=== PATIENT | female | born 1970 | race Caucasian/White ===

== ENCOUNTER 2016-12-25 12:27 | Emergency (ER) | payer BC ==
--- NOTE | ~2016-12-25 | CR173 ---
[facility] A Service of [facility] & [facility] / [facility] RADIOLOGY TEXT RESULTS PATIENT: JORDON BECKWITH LOCATION: CFTX : 72 UNIT #: [id number] AGE: [address]: Anahi Weathers SEX: F ORDER DR: [id number] [facility] [address] [place], [place] [address] [id number] E MR#: [id number] Acc #: [id number] NAME: JORDON BECKWITH : 1970 SEX: F STUDY DATE/TIME: 12/25/2016 11:53 UNIT: [facility] SAULT ROOM: STUDY DESCRIPTION: CR Knee 3 Views Rt Attending Physician: Anahi Weathers Pa-C Ordering Physician: Ed Doctor [id number] [facility] Primary Care Physician: Primary Care Physician No MEDICAL IMAGING REPORT This report is preliminary unless electronic signature is present EXAM Right knee 3 views HISTORY Pain and swelling in right knee, fell off front porch. FINDINGS 3 views are submitted. There is marginal spur formation along intercondylar notch. There are degenerative changes along the lateral aspect of the patellofemoral joint. No fractures are identified. There is no evidence of joint effusion. CONCLUSION Radiographic findings consistent with osteoarthritis. No fractures or joint effusion. Dictated by... Torres Richard M.D. THIS IS AN ELECTRONICALLY VERIFIED REPORT Torres Richard M.D. at 12/26/2016 4:26 PM Drew TD: 12/25/2016 14:00 JOB #: [id number] MEDICAL IMAGING REPORT Page 1 of 1 COPY
[~2016-12-25 12:27] MED LIST: ALBUTEROL17 GM INH; ASPIRIN EC81 M1 PO; B-123000 MCG PO; CRANBERRY500 M1 PO; FISH OIL 1,0001 EAC3 PO; FISH OIL300 MG PO; ISOSORBIDE MONO10 MG PO; MEDROL4 MG/DOSE- PO; MULTI VITAMIN1 EACH PO; NAPROSYN500 MG PO; NO MEDICATIONS; PHENERGAN DM1 ML PO; PHENERGAN W/CO120 ML PO; PREDNISONE PO; PROBIOTIC1 EAC1 PO; RANITIDINE HCL150 M1 PO; VITAMIN B-COMPL1 CA1 PO; WOMEN'S DAILY1 EACH PO; ZITHROMAX PO; ZITHROMAX1 G/PKT PO
== END 2016-12-25 13:18 | disposition home or self-care (01) ==
LOC: CFTX 12:27
DX: S80.01XA Contusion of right knee, initial encounter (principal); F17.210 Nicotine dependence, cigarettes, uncomplicated; Z88.5 Allergy status to narcotic agent; W17.89XA Other fall from one level to another, initial encounter; Y92.009 Unspecified place in unspecified non-institutional (private) residence as the place of occurrence of the external cause
CPT/HCPCS: 73562; 84703; 99283

== ENCOUNTER 2017-02-11 20:03 | Emergency (ER) | payer BC ==
--- NOTE | ~2017-02-11 | CR126 ---
[facility] A Service of [facility] & [facility] RADIOLOGY TEXT RESULTS PATIENT: JORDON BECKWITH LOCATION: CFTX : 72 UNIT #: [id number] AGE: [address]: COLE SILVESTRE APRN SEX: F ORDER DR: [id number] [facility] [address] [place], [place] [address] [id number] E MR#: [id number] Acc #: [id number] NAME: JORDON BECKWITH : 1970 SEX: F STUDY DATE/TIME: 02/11/2017 21:19 UNIT: [facility] ROOM: STUDY DESCRIPTION: CR Foot Complete Min 3 View Lt Attending Physician: Cole Silvestre Aprn Ordering Physician: Cole Silvestre Aprn Primary Care Physician: Babak Alvarenga M.D. MEDICAL IMAGING REPORT This report is preliminary unless electronic signature is present EXAM Left foot 3 views HISTORY Foot pain after fall today. FINDINGS Three views left foot demonstrate old screw track in the medial cuneiform and base of the second metatarsal. Bone alignment is satisfactory. Mild degenerative changes in the midfoot. Small plantar and posterior calcaneal spurs. Minimal degenerative changes in the IP joint of the great toe. No fracture. IMPRESSION No acute findings. Dictated by... Julio César Deal M.D. THIS IS AN ELECTRONICALLY VERIFIED REPORT Julio César Deal M.D. at 02/11/2017 11:22 PM DFL/he TD: 02/11/2017 22:45 JOB #: [id number] MEDICAL IMAGING REPORT Page 1 of 1 COPY
== END 2017-02-11 22:35 | disposition home or self-care (01) ==
LOC: CFTX 20:03 → CED 20:03 → CFTX 21:16
DX: S90.32XA Contusion of left foot, initial encounter (principal); F17.210 Nicotine dependence, cigarettes, uncomplicated; Z88.5 Allergy status to narcotic agent; W19.XXXA Unspecified fall, initial encounter; Y92.009 Unspecified place in unspecified non-institutional (private) residence as the place of occurrence of the external cause
CPT/HCPCS: 29405; 73630; 99283